=== PATIENT | female | born 1985 | race Asian ===

== ENCOUNTER 2016-09-22 10:05 | Inpatient (IN) | payer SELFPAY ==
[~2016-09-22] VITALS: Ht 167.6 cm; Wt 68.0 kg
[2016-09-24] MEDS ORDERED: OXYTOCIN 20 UNITS/LR PREMIX 1,000 ML IV SCH (00:18)
[2016-09-24] MEDS ORDERED: LACTATED RINGERS 1,000 ML IV SCH (00:18)
[2016-09-24] MEDS ORDERED: NALBUPHINE 10 MG/ML AMP IVP PRN (00:20)
[2016-09-24] MEDS ORDERED: IBUPROFEN 800 MG TAB PO PRN ×2 (00:20→02:55)
[2016-09-24] MEDS ORDERED: CARBOPROST 250 MCG/ML AMP IM PRN (00:20)
[2016-09-24] MEDS ORDERED: METHYLERGONOVINE 0.2 MG/ML AMP IM SCH (00:20)
[2016-09-24] MEDS ORDERED: PROMETHAZINE 25 MG/ML VIAL IVP PRN (00:20)
[2016-09-24 00:30] VITALS: BP 122/86
[2016-09-24] MEDS ORDERED: OXYTOCIN 10 UNITS/ML VIAL IM SCH (00:32)
[2016-09-24 00:43] LABS: BASOPHILS # (AUTO) 0.1 K/uL (0.00-0.22); BASOPHILS % (AUTO) 0.6 % (0.0-2.0); EOSINOPHILS # (AUTO) 0.2 K/uL (0-0.4); EOSINOPHILS % (AUTO) 1.5 % (0.0-4.0); HEMATOCRIT 36.2 % (36-48); HEMOGLOBIN 11.7 g/dL (12.0-16.0); LYMPHOCYTES # (AUTO) 1.6 K/uL (2.5-16.5); LYMPHOCYTES % (AUTO) 16.4 % (20.5-51.1); MEAN CORPUSCULAR HEMOGLOBIN 29 pg (27-31); MEAN CORPUSCULAR HGB CONC 32 g/dL (33-37); MEAN CORPUSCULAR VOLUME 90 fL (80-94); MONOCYTES # (AUTO) 0.5 K/uL (0.8-1.0); MONOCYTES % (AUTO) 4.8 % (1.7-9.3); NEUTROPHILS # (AUTO) 7.6 K/uL (1.8-7.7); NEUTROPHILS % (AUTO) 76.7 % (42.2-75.2); PLATELET COUNT (AUTO) 203 K/uL (140-450); RED BLOOD CELL COUNT(AUTO) 4.02 MIL/uL (4.20-5.40); RED CELL DISTRIBUTION WIDTH 13.8 % (11.6-13.7)
[2016-09-24 00:45] LABS: APPEARANCE,URINE SL CLOUDY (CLEAR); BILIRUBIN,URINE NEGATIVE (NEGATIVE); BLOOD, URINE 2+ (NEGATIVE); COLOR,URINE YELLOW (YELLOW); LEUKOCYTE ESTERASE ,URINE 2+ (NEGATIVE); NITRITE, URINE NEGATIVE (NEGATIVE); PROTEIN,URINE NEGATIVE (NEGATIVE); UGLUCOSE NEGATIVE (NEGATIVE); UROBILINOGEN,URINE 0.2 EU/dL (0.2 - 1)
[2016-09-24] MEDS ORDERED: MISOPROSTOL 25 MCG TAB VG SCH (01:05)
[2016-09-24 01:10] LABS: BACTERIA,URINE 4+ /HPF (None Seen); WBC,URINE 20-60 /HPF (0-5)
[2016-09-24] MEDS ORDERED: LIDOCAINE 1% 500 MG/50 ML VIAL INJ SCH (01:30)
[2016-09-24] MEDS ORDERED: LIDOCAINE 1% 50 ML ONE (01:35)
[2016-09-24] MEDS ORDERED: OXYTOCIN 10 UNITS/ML VIAL ONE (01:35)
[2016-09-24] MEDS ORDERED: OXYTOCIN 20 UNITS/LR PREMIX 1,000 ML IV ONE (01:36)
[2016-09-24] MEDS ORDERED: BENZOCAINE/MENTHOL 20%-0.5% 60 GM CAN TP PRN (02:55)
[2016-09-24] MEDS ORDERED: WITCH HAZEL 40 PAD PACKAGE TP PRN (02:55)
[2016-09-24] MEDS ORDERED: METHYLERGONOVINE 0.2 MG/ML AMP IM PRN (02:55)
[2016-09-24] MEDS ORDERED: HYDROcodone/APAP 5/325 MG 1 TAB TAB PO PRN (02:55)
[2016-09-24] MEDS ORDERED: oxyCODONE/APAP 5/325 MG 1 TAB TAB PO PRN (02:55)
[2016-09-24] MEDS ORDERED: TEMAZEPAM 15 MG CAP PO PRN (02:55)
[2016-09-24] MEDS ORDERED: PREN-380 PO (03:00)
--- NOTE | 2016-09-24 08:29 | NUR ---
PATIENT HAS BEEN SCREENED AND CATEGORIZED LOW NUTRITION RISK. PATIENT WILL BE SEEN WITHIN 7 DAYS OF ADMISSION. 09/30/[address]
[2016-09-24] MEDS ORDERED: DOCUSATE SOD/SENNA 50/8.6 MG 1 TAB PO SCH (21:00)
[2016-09-25 06:04] LABS: HEMOGLOBIN 11.3 g/dL (12.0-16.0)
== END 2016-09-25 15:55 | disposition home or self-care (01) | DRG 775 ==
LOC: MFCC 09-23 22:07 → UNDOADMIN 09-23 22:07 → MFCC 09-24 00:05
PROVIDERS: ADMIT Obstetrics & Gynecology; ATTEND Obstetrics & Gynecology
PROC: 10E0XZZ Delivery of Products of Conception, External Approach (ICD-10-PCS; principal; 2016-09-24)
DX: O80 Encounter for full-term uncomplicated delivery (principal); Z28.21 Immunization not carried out because of patient refusal; Z37.0 Single live birth; Z3A.40 40 weeks gestation of pregnancy
CPT/HCPCS: 36415; 59409; 81001; 85018; 85025; 86592; 86886; 86900; 86901; 87086; J2001; J2590; J7120